=== PATIENT | male | born 1965 | race African-American/Black ===

== ENCOUNTER 2016-07-02 11:23 | Emergency (ER) | payer OTHER ==
[~2016-07-02] VITALS: Ht 172.7 cm; Wt 65.8 kg
[2016-07-02 11:32] VITALS: BP 134/92
[2016-07-02] MEDS ORDERED: MOBIC15 MG PO (11:58)
[2016-07-02] MEDS ORDERED: PENICILLIN V P500 MG PO (11:58)
== END 2016-07-02 12:23 | disposition home or self-care (01) ==
LOC: ER 11:23
DX: K08.89 Other specified disorders of teeth and supporting structures (principal); R22.0 Localized swelling, mass and lump, head; F10.99 Alcohol use, unspecified with unspecified alcohol-induced disorder; Z87.891 Personal history of nicotine dependence

== ENCOUNTER 2017-08-27 13:32 | Emergency (ER) | payer BC ==
[~2017-08-27] VITALS: Ht 172.7 cm; Wt 68.5 kg
--- NOTE | ~2017-08-27 | EKG ---
[place] [address] [facility] [place] [address] ELECTROCARDIOGRAM REPORT Name: JESSI DÍAZ Room #: DEP [place]ina#: [id number] Admission: 08/27/17 Attend Phys: Discharge: 08/27/17 Date of : 61 Report #: [id number] THIS REPORT FOR: //name// [facility] ED Test Date: 2017-08-27 Test Time: 13:54:38 Pat Name: JESSI DÍAZ Department: Room: Gender: M Mc Kay Stitcher: ALESHIAINGRID : 1965 Requested By: Aneudy Cruz Order Number: [id number] MD: Randy Pimentel Measurements Intervals [place] Rate: 101 P: 52 DC: 160 QRS: -27 QRSD: 100 T: 44 QT: 351 QTc: 455 Interpretive Statements Sinus tachycardia Borderline left axis deviation RSR' in V1 or V2, probably normal variant Compared to ECG 10/29/2016 18:34:45 No significant change was found Electronically Signed On 08-28-2017 7:37:18 CDT by Randy Pimentel [email or web address] <ELECTRONICALLY SIGNED> By: Randy Pimentel MD, [facility] 08/28/17 0737 1354 1354 Randy Pimentel MD, [facility] /EPI
[~2017-08-27 13:32] MED LIST: ASPIRIN325 PO; IBUPROFEN 800800 M1 PO; MOBIC15 MG PO; NAPROSYN500 MG PO; NOHOMEMEDICATIONS; PENICILLIN V P500 MG PO
[2017-08-27 13:48] LABS: ABSOLUTE NEUTROPHILS 8.3 thou/uL (1.4-8.2); BASOPHILS 0.3 % (0.0-2.0); EOSINOPHILS 0.5 % (0.0-3.0); HEMATOCRIT 41.8 % (42.0-52.0); LYMPHOCYTES 10.7 % (24.0-44.0); MCH 26.1 pg (26.0-34.0); MCHC 33.6 g/dL (28.0-37.0); MCV 77.7 fL (80.0-100.0); MONOCYTES 4.5 % (1.0-8.0); PLATELET COUNT 230 thou/uL (150-400); RBC 5.38 mil/uL (4.50-6.00); RDW 14.7 % (10.5-14.5); WBC 9.8 thou/uL (4.0-11.0)
[2017-08-27 13:55] LABS: CALCIUM 8.7 mg/dL (8.5-10.1); CREATININE 0.9 mg/dL (0.7-1.3); POTASSIUM 3.5 mmol/L (3.5-5.1)
[2017-08-27 14:01] LABS: ALBUMIN 3.4 g/dL (3.4-5.0); TOTAL BILIRUBIN 0.5 mg/dL (<0.1-1.0)
[2017-08-27] MEDS ORDERED: NORVASC5 MG PO (14:18)
[2017-08-27] MEDS ORDERED: ATORVASTATIN CA40 MG PO (14:18)
[2017-08-27] MEDS ORDERED: ASPIRIN81 M2 PO (14:18)
[2017-08-27 15:34] LABS: URINE BILIRUBIN NEGATIVE (Negative); URINE BLOOD NEGATIVE (Negative); URINE CLARITY CLEAR; URINE COLOR YELLOW; URINE GLUCOSE-RANDOM* NEGATIVE (Negative); URINE KETONES NEGATIVE (Negative); URINE LEUKOCYTES NEGATIVE (Negative); URINE NITRITE NEGATIVE (Negative); URINE PROTEIN (DIPSTICK) NEGATIVE (Negative); URINE SPECIFIC GRAVITY <= 1.005 (1.005-1.035)
[2017-08-27] MEDS ORDERED: CIPROFLOXACIN750 MG PO (15:53)
[2017-08-27] MEDS ORDERED: FLAGYL500 MG PO (15:53)
[2017-08-27] MEDS ORDERED: HYDROCODONE-AP1 EAC6 PO (15:53)
== END 2017-08-27 16:37 | disposition home or self-care (01) ==
LOC: ER 13:32
PROVIDERS: Nurse Practitioner Family
DX: K57.92 Diverticulitis of intestine, part unspecified, without perforation or abscess without bleeding (principal); Z87.891 Personal history of nicotine dependence

== ENCOUNTER 2018-11-16 15:44 | Inpatient (IN) | payer BC ==
[~2018-11-16] VITALS: Ht 172.7 cm; Wt 66.7 kg
--- NOTE | ~2018-11-16 | HC ---
[facility] [address] [place] [address] CONSULTATION Name: JESSI DÍAZ Room #: 359-P [facility] IN M.R.#: [id number] Admission: 11/16/18 ������������������ Attend Phys: Andrade Hernández MD Discharge: 11/17/18 ������������������ Date of : 61 Report #: [id number] THIS REPORT FOR: //name// CC: Raven Hernández DATE OF SERVICE: 11/17/2018 INDICATION: Chest pain. HISTORY OF PRESENT ILLNESS: This is a 53-year-old gentleman with a history of hypertension, hypercholesterolemia, presenting with chest pains. Yesterday around 2:00 p.m., he developed mild discomfort across the chest area. He was resting at the time when the discomfort started. There were no associated symptoms of dyspnea or diaphoresis. It did not change with standing or movement of his arms. It lingered for a while and started to dissipate, lasting probably 3 hours in duration. There is no history of fever, chills or orthopnea. The patient reports having a stress test recently with his primary care physician at [facility], unremarkable. PAST MEDICAL HISTORY: Hypertension, hypercholesterolemia. ALLERGIES: None. MEDICATIONS: Include atorvastatin 40, amlodipine 5, aspirin. SOCIAL HISTORY: Negative for tobacco use. FAMILY HISTORY: Negative for premature CAD. REVIEW OF SYSTEMS: A full 10-point review of systems performed. Only the pertinent positives and negatives are described in the HPI. PHYSICAL EXAMINATION: VITAL SIGNS: Blood pressure is 130/80, heart rate is 65 beats per minute. GENERAL APPEARANCE: This is a well-developed, well-nourished male, in no acute distress. HEENT: Normocephalic, atraumatic. Oral mucosa moist. NECK: Supple. LUNGS: Clear to auscultation. CARDIAC: Regular rate and rhythm, S1, S2 positive. ABDOMEN: Soft, nontender. EXTREMITIES: No cyanosis, no edema. LABORATORY VALUES: Hemoglobin 13.1. Serial troponin levels are negative x 3. Creatinine is 0.8. [facility] [address] [place] [address] CONSULTATION Name: JESSI DÍAZ Room #: 359-[facility] IN M.R.#: [id number] Admission: 11/16/18 ������������������ Attend Phys: Andrade Hernández MD Discharge: 11/17/18 ������������������ Date of : 61 Report #: [id number] ECG reveals sinus rhythm, early repolarization. ASSESSMENT AND PLAN: 1. Chest pain syndrome, three sets of troponin levels are negative and the ECG is unremarkable. This is unlikely to be from a cardiac abnormality as he had 3 hours of discomfort and three sets of troponin levels are negative. He remains clinically stable with no further episodes. Consider discharge home and the patient will follow up with his physician at [facility]. 2. Hypertension. The blood pressure is stable with amlodipine. 3. Hypercholesterolemia, tolerating Lipitor, denies any myalgias. ��������������������������������������������� ���������������������������������������� By: ��������������������������������������������� 1100 2224 MD sheri Sanchez
[~2018-11-16 15:44] MED LIST changes: +ASPIRIN81 M2 PO; +ATORVASTATIN CA40 MG PO; +CIPROFLOXACIN750 MG PO; +FLAGYL500 MG PO; +HYDROCODONE-AP1 EAC6 PO; +NORVASC5 MG PO
[2018-11-16 15:55] VITALS: BP 126/80
[2018-11-16 16:36] LABS: BASOPHILS 1.1 % (0.0-2.0); EOSINOPHILS 3.9 % (0.0-3.0); HEMATOCRIT 38.2 % (42.0-52.0); HEMOGLOBIN 12.7 gm/dL (14.0-18.0); LYMPHOCYTES 34.1 % (24.0-44.0); MCH 25.8 pg (26.0-34.0); MCHC 33.3 g/dL (28.0-37.0); MCV 77.4 fL (80.0-100.0); PLATELET COUNT 199 thou/uL (150-400); POLYS 52.9 % (36.0-66.0); RBC 4.93 mil/uL (4.50-6.00); RDW 14.9 % (10.5-14.5); WBC 3.7 thou/uL (4.0-11.0)
[2018-11-16 16:43] LABS: ANION GAP 5 mmol/L (7-16); BUN 12 mg/dL (7-18); CALCIUM 8.7 mg/dL (8.5-10.1); CHLORIDE 110 mmol/L (98-107); CO2 30 mmol/L (21-32); CREATININE 0.9 mg/dL (0.7-1.3); GLUCOSE 93 mg/dL (74-106); POTASSIUM 3.8 mmol/L (3.5-5.1); SODIUM 145 mmol/L (136-145)
[2018-11-16 16:54] LABS: ALBUMIN 3.3 g/dL (3.4-5.0); SGOT 18 U/L (15-37); SGPT 30 U/L (30-65); TOTAL BILIRUBIN 0.3 mg/dL (<0.1-1.0); TROPONIN-I <0.06 ng/mL (<0.06)
[2018-11-16 18:39] LABS: ALBUMIN 3.3 g/dL (3.4-5.0); TOTAL PROTEIN 7.1 g/dL (6.4-8.2)
[2018-11-16 19:05] LABS: TSH 0.746 uIU/mL (0.358-3.740)
[2018-11-16 20:18] VITALS: BP 129/82
[2018-11-16 20:40] LABS: PROTIME 10.6 Seconds (9.3-11.4)
[2018-11-16 21:00] VITALS: BP 131/90
[2018-11-16 23:29] VITALS: BP 140/95
[2018-11-17 04:52] VITALS: BP 122/88
--- NOTE | 2018-11-17 06:05 | NUR ---
Admitted from ER last night. Cardiology consult called to answering service. Heparin gtt.infusing. Kept NPO since MN per order. Up ad shereen in room with steady gait. Slept some. Denies any chest discomfort stating he's feeling better already and hoping he will go home today. Denies being short of breath at rest or with activity. Will continue to monitor.
[2018-11-17 07:30] VITALS: BP 131/82
[2018-11-17 07:59] LABS: HEMATOCRIT 39.9 % (42.0-52.0); HEMOGLOBIN 13.1 gm/dL (14.0-18.0); MCH 25.4 pg (26.0-34.0); MCHC 32.7 g/dL (28.0-37.0); MCV 77.7 fL (80.0-100.0); RBC 5.14 mil/uL (4.50-6.00); RDW 15.6 % (10.5-14.5); WBC 4.2 thou/uL (4.0-11.0)
[2018-11-17 08:09] LABS: CALCIUM 8.8 mg/dL (8.5-10.1); CREATININE 0.8 mg/dL (0.7-1.3); POTASSIUM 3.7 mmol/L (3.5-5.1)
--- NOTE | 2018-11-17 11:14 | NUR ---
Assumed care of pt at 0700. Pt has been up ad shereen in room. Denies pain, chest pain, and SOB. Pt has repeatedly asked to go home and threatened to leave. Pt did agree to wait until the refining supervisor could meet with him. Dr. Rodgers consulted with pt and gave him an "ok" to DC, noting that he has a physician(s) at that he can follow-up with. Will notify Dr. Hernández for further DC orders.
[2018-11-17 11:44] VITALS: BP 131/82
--- NOTE | 2018-11-17 11:53 | EKG ---
[address] [address] ELECTROCARDIOGRAM REPORT Name: JESSI DÍAZ Room #: 359-P ADM IN M.R.#: [id number] ������������������ Admission: 11/16/18 ������������������ Attend Phys: Andrade Hernández MD Discharge: ������������������ Date of : 61 Report #: [id number] ����������������������������������������������������������������� [id number] THIS REPORT FOR: //name// [facility] ED Test Date: 2018-11-16 Test Time: 15:53:21 Pat Name: JESSI DÍAZ Department: Room: 359 Gender: M Nut Sifter: ARMEN : 1965 Requested By: Dahlia Burr Order Number: [id number] MD: Will Rodgers Measurements Intervals [place] Rate: 77 P: 35 SD: 153 QRS: 6 QRSD: 98 T: 65 QT: 374 QTc: 424 Interpretive Statements Sinus rhythm RSR' in V1 or V2, right VCD Early repolarization Compared to ECG 08/27/2017 13:54:38 No significant change Electronically Signed On 11-17-2018 11:52:56 CDT by Will Rodgers [email or web address] ��������������������������������������������� <ELECTRONICALLY SIGNED> ���������������������������������������� By: Will Rodgers MD ��������������������������������������������� 11/17/18 1152 1553 155 Will Rodgers MD /MILY
--- NOTE | 2018-11-17 12:35 | NUR ---
PATIENT DISHCARGED HOME. CARDIOLOGY SAW HIM BUT HE STATED THAT HE HAS A DR AT WHOM HE WILL PREFER TO SEE. HE HAS INSISTED TO NURSE ALL MORNING THAT HE WILL BE GOING HOME TODAY NO MATTER WHAT. WALKED WITH PATIENT TO PARKING LOT WHERE HE DROVE HIMSELF HOME.
== END 2018-11-17 12:24 | disposition home or self-care (01) | DRG 313 ==
LOC: ER 15:44 → EROBS 17:28 → 3W 20:53
PROVIDERS: Physician Assistant; ADMIT Internal Medicine
DX: R07.89 Other chest pain (principal); I10 Essential (primary) hypertension; E78.00 Pure hypercholesterolemia, unspecified; Z87.891 Personal history of nicotine dependence; Z79.82 Long term (current) use of aspirin; Z79.899 Other long term (current) drug therapy; Z82.49 Family history of ischemic heart disease and other diseases of the circulatory system
CPT/HCPCS: 10779

== ENCOUNTER 2019-09-30 14:22 | Emergency (ER) | payer OTHER ==
[~2019-09-30] VITALS: Ht 172.7 cm; Wt 68.0 kg
[2019-09-30 15:11] LABS: ABSOLUTE NEUTROPHILS 3.3 thou/uL (1.4-8.2); BASOPHILS 1.3 % (0.0-2.0); EOSINOPHILS 2.3 % (0.0-3.0); HEMATOCRIT 43.1 % (42.0-52.0); HEMOGLOBIN 14.4 gm/dL (14.0-18.0); LYMPHOCYTES 31.1 % (24.0-44.0); MCH 26.6 pg (26.0-34.0); MCHC 33.5 g/dL (28.0-37.0); MCV 79.6 fL (80.0-100.0); PLATELET COUNT 226 thou/uL (150-400); POLYS 57.3 % (36.0-66.0); RBC 5.42 mil/uL (4.50-6.00); RDW 14.4 % (10.5-14.5); WBC 5.7 thou/uL (4.0-11.0)
[2019-09-30 15:17] LABS: ANION GAP 7 mmol/L (7-16); BUN 15 mg/dL (7-18); CHLORIDE 102 mmol/L (98-107); CO2 28 mmol/L (21-32); GLUCOSE 89 mg/dL (74-106); POTASSIUM 3.9 mmol/L (3.5-5.1); SODIUM 137 mmol/L (136-145)
[2019-09-30 15:27] LABS: TROPONIN-I <0.06 ng/mL (<0.06)
[2019-09-30 18:15] VITALS: BP 128/92
--- NOTE | 2019-10-01 08:00 | EKG ---
[facility] [place] [address] [place] [address] ELECTROCARDIOGRAM REPORT Name: JESSI DÍAZ Room #: DEP [facility]#: [id number] Admission: 09/30/19 Attend Phys: Discharge: 09/30/19 Date of : 61 Report #: [id number] THIS REPORT FOR: cc: FAM - No family physician/PCP FAM - No family physician/PCP Randy Pimentel MD [facility] THIS REPORT FOR: //name// [facility] ED Test Date: 2019-09-30 Test Time: 14:37:45 Pat Name: JESSI DÍAZ Department: Room: Gender: Egg Trayer: [facility] : 1965 Requested By: Katarina Easton Order Number: [id number] MD: Randy Pimentel Measurements Intervals [place] Rate: 74 P: 32 CT: 177 QRS: -25 QRSD: 104 T: 26 QT: 388 QTc: 431 Interpretive Statements Sinus rhythm Borderline left axis deviation Early repolarization Compared to ECG 11/16/2018 15:53:21 No significant change was found Electronically Signed On 10-01-2019 7:59:06 CDT by Randy Pimentel [email or web address] <ELECTRONICALLY SIGNED> By: Randy Pimentel MD, FAC 10/01/19 0759 1437 1437 Randy Pimentel MD, [facility] /EPI
== END 2019-09-30 18:35 | disposition home or self-care (01) ==
LOC: ER 14:22
PROVIDERS: Emergency Medicine
DX: I10 Essential (primary) hypertension (principal); E78.00 Pure hypercholesterolemia, unspecified; R07.9 Chest pain, unspecified; E66.9 Obesity, unspecified; Z79.899 Other long term (current) drug therapy; Z79.82 Long term (current) use of aspirin; Z87.891 Personal history of nicotine dependence

== ENCOUNTER 2021-04-25 19:01 | Observation (INO) | payer OTHER ==
[~2021-04-25] VITALS: Ht 172.7 cm; Wt 72.6 kg
[2021-04-25 19:08] VITALS: BP 136/76
[2021-04-25 19:40] LABS: ABSOLUTE NEUTROPHILS 2.9 thou/uL (1.4-8.2); BASOPHILS 1.6 % (0.0-2.0); EOSINOPHILS 3.6 % (0.0-3.0); HEMATOCRIT 42.6 % (42.0-52.0); HEMOGLOBIN 13.8 gm/dL (14.0-18.0); LYMPHOCYTES 29.9 % (24.0-44.0); MCH 25.5 pg (26.0-34.0); MCHC 32.4 g/dL (28.0-37.0); MCV 78.9 fL (80.0-100.0); MONOCYTES 8.7 % (1.0-8.0); PLATELET COUNT 213 thou/uL (150-400); POLYS 56.2 % (36.0-66.0); RDW 15.2 % (10.5-14.5); WBC 5.1 thou/uL (4.0-11.0)
[2021-04-25 19:45] LABS: CALCIUM 8.5 mg/dL (8.5-10.1); POTASSIUM 3.5 mmol/L (3.5-5.1)
[2021-04-25 22:25] VITALS: BP 143/95
[2021-04-25] MEDS ORDERED: NOHOMEMEDICATIONS (22:26)
[2021-04-25 22:46] VITALS: BP 142/93
[2021-04-25 23:05] VITALS: BP 125/88
[2021-04-25 23:30] LABS: CHOLESTEROL 162 mg/dL (<200); HDL CHOLESTEROL 45 mg/dL (>40); LDL CHOLESTEROL 84 mg/dL (<100); TC:HDL 3.6 Ratio (Not establshd); TRIGLYCERIDE 168 mg/dL (<150); VLDL 34 mg/dL (<40)
[2021-04-25 23:31] LABS: SERUM ASSESSMENT Slight Lipemia
[2021-04-26] VITALS (8 sets, daily range): BP systolic 114–147; BP diastolic 82–98
--- NOTE | 2021-04-26 00:40 | NUR ---
PT ARRIVED TO ROOM 201 IN CCU ON 04.25.21 AT 2254. PT ALERT, ON RA, AMBULATING TO TOILET. VS STABLE. WILL CONTINUE TO MONITOR.
[2021-04-26 02:10] LABS: CALCIUM 8.3 mg/dL (8.5-10.1); POTASSIUM 3.5 mmol/L (3.5-5.1)
--- NOTE | 2021-04-26 07:49 | EKG ---
[address] [address] ELECTROCARDIOGRAM REPORT Name: JESSI DÍAZ Room #: 201-P ADM IN M.R.#: [id number] Admission: 04/25/21 Attend Phys: Golden Duran MD Discharge: Date of : 61 Report #: [id number] [facility] ED Test Date: 2021-04-25 Test Time: 19:09:10 Pat Name: JESSI DÍAZ Department: Room: 201 Gender: M Equipment Specialist: GHAZAL : 1965 Requested By: Jared Loza Order Number: [id number] MD: Hunter Ovalles Measurements Intervals [place] Rate: 70 P: 35 AK: 173 QRS: -7 QRSD: 107 T: 39 QT: 391 QTc: 422 Interpretive Statements Sinus rhythm Minimal ST elevation, anterior leads Baseline wander in lead(s) I,III,aVL,aVF Compared to ECG 09/30/2019 14:37:45 ST (T wave) deviation now present Early repolarization no longer present Electronically Signed On 04-26-2021 7:49:17 FABRICATION WELDER by Hunter Ovalles [email or web address] <ELECTRONICALLY SIGNED> By: Hunter Ovalles MD, FACC 04/26/21 0749 190 08 Hunter Ovalles MD, FAC /EPI
--- NOTE | 2021-04-26 07:50 | EKG ---
[address] [address] ELECTROCARDIOGRAM REPORT Name: JESSI DÍAZ Room #: 201-P ADM IN M.R.#: [id number] Admission: 04/25/21 Attend Phys: Golden Duran MD Discharge: Date of : 61 Report #: [id number] [facility] Test Date: 2021-04-26 Test Time: 03:45:51 Pat Name: JESSI DÍAZ Department: Room: 201 P Gender: M Science Center Display Builder: [id number] : 1965 Requested By: Yohana Grande Order Number: [id number] : Hunter Ovalles Measurements Intervals [place] Rate: 67 P: 32 DC: 179 QRS: -12 QRSD: 105 T: 37 QT: 417 QTc: 441 Interpretive Statements Sinus rhythm Compared to ECG 04/25/2021 19:09:10 No significant change Electronically Signed On 04-26-2021 7:50:25 FISH HATCHERY SUPERINTENDENT by Hunter Ovalles [email or web address] <ELECTRONICALLY SIGNED> By: Hunter Ovalles MD, [facility] 04/26/21 0750 0345 0345 Hunter Ovalles MD, FACC /EPI
--- NOTE | 2021-04-26 08:48 | NUR ---
Assumed care of pt this AM. Pt is A&O x4, on RA. SR on the monitor. Pt states current chest pain 02/11 without radiation. Pt up ad shereen in room. NPO since midnight with plans for stress today today. Will continue to assess pt needs throughout day.
--- NOTE | 2021-04-26 11:05 | 2DMMODE ---
[facility] [place] [address] 2 D/M-MODE ECHOCARDIOGRAM Name: JESSI DÍAZ Room #: 201-P ADM IN M.R.#: [id number] Admission: 04/25/21 Attend Phys: Jair Robertson MD Discharge: Date of : 61 Report #: [id number] THIS REPORT FOR: cc: FAM - No family physician/PCP FAM - No family physician/PCP Charanjit Arceo MD ~ APPROVED REPORT Study performed: 04/26/2021 09:28:16 EXAM: Comprehensive 2D, Doppler, and color-flow Echocardiogram Patient Location: Bedside Room #: 201 Status: routine BSA: 1.86 HR: 62 bpm BP: 125/88 mmHg Rhythm: NSR Other Information Study Quality: Good Indications Chest Pain Hypertension/HDD 2D Dimensions RVDd: 35.17 mm IVSd: 10.79 (7-11mm) LVOT Diam: 22.48 (18-24mm) LVDd: 44.53 mm PWd: 11.43 (7-11mm) Ascending Ao: 29.73 (22-36mm) LVDs: 28.82 (25-40mm) Left Atrium: 30.27 (27-40mm) Aortic Root: 28.53 mm IVC: 16.00 mm Volumes Left Atrial Volume (Systole) Single Plane 4CH: 36.86 mL Single Plane 2CH: 45.65 mL LA ESV Index: 25.00 mL/m2 Aortic Valve AoV Peak Aries.: 0.94 m/s AO Peak Gr.: 3.53 mmHg LVOT Max P.74 mmHg LVOT Max V: 0.83 m/s [facility] [address] [place] [address] 2 D/M-MODE ECHOCARDIOGRAM Name: JESSI DÍAZ Room #: 201-P [facility] IN ..#: [id number] Admission: 04/25/21 Attend Phys: Jair Robertson MD Discharge: Date of : 61 Report #: [id number] [id number] Vmax: 3.50 cm2 Mitral Valve E/A Ratio: 1.2 MV Decel. Time: 164.15 ms MV E Max Aries.: 0.83 m/s MV A Aries.: 0.69 m/s MV PHT: 47.60 ms IVRT: 96.89 ms Pulmonary Valve PV Peak Aries.: 0.77 m/s PV Peak Gr.: 2.36 mmHg Pulmonary Vein P Vein S: 0.45 m/s P Vein A: 0.23 m/s P Vein D: 0.26 m/s P Vein A Dur.: 156.9 msec P Vein S/D Ratio: 1.73 Left Ventricle The left ventricle is normal size. There is normal LV segmental wall motion. There is normal left ventricular wall thickness. Left ventricular systolic function is normal. The left ventricular ejection fraction is within the normal range. LVEF is 55-60%. The left ventricular diastolic function is normal. Right Ventricle The right ventricle is normal size. The right ventricular systolic function is normal. Atria The left atrium size is normal. The right atrium size is normal. Aortic Valve The aortic valve is normal in structure. No aortic regurgitation is present. There is no aortic valvular stenosis. Mitral Valve The mitral valve is normal in structure. There is no mitral valve regurgitation noted. No evidence of mitral valve stenosis. Tricuspid Valve The tricuspid valve is normal in structure. There is no tricuspid valve regurgitation noted. Pulmonic Valve [facility] [address] [place] [address] 2 D/M-MODE ECHOCARDIOGRAM Name: JESSI DÍAZ Room #: 201-P [facility] IN M.R.#: [id number] Admission: 04/25/21 Attend Phys: Jair Robertson MD Discharge: Date of : 61 Report #: [id number] The pulmonary valve is normal in structure. There is no pulmonic valvular regurgitation. Great Vessels The aortic root is normal in size. IVC is normal in size and collapses >50% with inspiration. Pericardium There is no pericardial effusion. <Conclusion> The left ventricle is normal size. There is normal left ventricular wall thickness. LVEF is 55-60%. The right ventricle is normal size. The left atrium size is normal. The aortic valve is normal in structure. The mitral valve is normal in structure. The tricuspid valve is normal in structure. The pulmonary valve is normal in structure. The aortic root is normal in size. There is no pericardial effusion. <ELECTRONICALLY SIGNED> By: Charanjit Arceo MD 04/26/21 1105 04 04 Charanjit Arceo MD /INF
[2021-04-26] MEDS ORDERED: TOPROL XL25 MG PO (17:10)
[2021-04-26] MEDS ORDERED: ASPIRIN EC81 M1 PO (17:10)
[2021-04-27 05:07] LABS: GLYCOHEMOGLOBIN (HGB A1C) 5.7 % (4.8-5.6)
--- NOTE | 2021-04-27 10:29 | CATHLAB ---
[facility] [place] [address] [place] [address] INVASIVE PROCEDURE REPORT Name: JESSI DÍAZ Room #: 201-P AIDA Arnold#: [id number] Admission: 04/26/21 Attend Phys: Jair Robertson MD Discharge: 04/26/21 Date of : 61 Report #: [id number] THIS REPORT FOR: cc: FAM - No family physician/PCP FAM - No family physician/PCP Will Rodgers MD ~ APPROVED REPORT Study performed: 04/26/2021 15:25:41 Patient Details Patient Status: In-Patient Room #: 201 The patient is a 55 year-old male Event Personnel Will Rodgers Hotel Maid, Kelly Díaz RN RN, Jolene Donohue RTR, PROFESSIONAL NURSE Monitor, Delma Costa RTR Scrub Procedures Performed Art Access - R femoral artery* Left Heart Cath w/or w/o Coronaries [id number] [facility] [address] Initial Mod Sed Same Phys/QHP Gr 158830 Hemostasis with Manual pressure 25407 Mod Sed Same Phys/QHP Ea 566072 Indication Positive stress test, Chest pain Risk Factors Hypercholesterolemia, Hypertension Procedure Narrative The Right Groin^ was infiltrated with 1% Lidocaine subcutaneous anesthesia. A PINNACLE 4FR Sheath #[id number] sheath was inserted into the RFA^. Coronary angiography was performed using coronary diagnostic catheters. The right coronary system was accessed and visualized with a JR4 catheter. The left coronary system was accessed and visualized with a JL4 catheter. The left ventricle was accessed and visualized with a JR4 catheter. Left ventricular/Aortic Valve gradient assessed via catheter pullback. Hemostasis was obtained with manual pressure following sheath removal without any complications. The patient tolerated the procedure well and there were no complications associated with the procedure. There was no hematoma. [facility] [address] [place] [address] INVASIVE PROCEDURE REPORT Name: JESSI DÍAZ Room #: 201-P [facility] IN [facility].#: [id number] Admission: 04/26/21 Attend Phys: Jair Robertson MD Discharge: 04/26/21 Date of : 61 Report #: [id number] Intraoperative Conscious Sedation Sedation start time: 15:51 Case end Time: 16:14 Fentanyl 50 mcg Versed 1 mg Fluoro Time: 1.35 minutes Dose: DAP 1472.50 cGycm2 194 mGy Contrast Type and Amount: Omnipaque 50 ml Coronary Angiography The patient's coronary anatomy is co- dominant. Diagnostic Cath Left Main The left main artery is a large-caliber vessel, appears angiographically normal. LAD The LAD is a moderate-sized caliber vessel, traverses the anterior wall and wraps around the apex. This vessel is patent with no flow-limiting lesions. Diagonal 1 This is a small to moderate-sized caliber vessel, patent with no flow-limiting lesions. Diagonal 2 This is a small to moderate-sized caliber vessel, patent with no flow-limiting lesions. Circumflex This is a moderate-sized caliber vessel, appears angiographically normal. OM1 This is a moderate-sized caliber vessel, originating from the mid segment of the left circumflex artery. This vessel courses down the inferolateral wall, patent with no flow-limiting lesions. Right Coronary This is a moderate-sized caliber vessel, patent with no flow-limiting lesions. R PDA This is a small to moderate-sized caliber vessel, patent with no flow-limiting lesions. Left Ventriculography Left Ventriculography was not performed. Ejection Fraction was 60% based off patient's Nuclear Cardiac Stress Test. An LVEDP was measured and there is no gradient across the outflow tract. Hemodynamics The aortic pressure is 140/74 mmHg with a mean of 104 mmHg. The left ventricular pressure is 140/5 mmHg with a mean of mmHg. The left ventricular end diastolic pressure is 18 mmHg. Conclusion 1. Angiographically normal coronary arteries. 2. This is a codominant system. [facility] [address] [place] [address] INVASIVE PROCEDURE REPORT Name: JESSI DÍAZ Room #: 201-P [facility] IN M.R.#: [id number] Admission: 04/26/21 Attend Phys: Jair Robertson MD Discharge: 04/26/21 Date of : 61 Report #: [id number] 3. There is normal LV systolic function. 4. Recommend risk factor management. <ELECTRONICALLY SIGNED> By: Will Rodgers MD 04/27/21 1028 1028 1028 Will Rodgers MD /INF
== END 2021-04-26 19:00 | disposition home or self-care (01) ==
LOC: ER 19:01 → 2N 21:28 → ER 21:28 → EROBS 21:28 → 2N 22:47
PROVIDERS: Nurse Practitioner; Nurse Practitioner Family; ADMIT Hospitalist; ATTEND Hospitalist
DX: R07.89 Other chest pain (principal); Z20.822 Contact with and (suspected) exposure to COVID-19; I10 Essential (primary) hypertension; E78.00 Pure hypercholesterolemia, unspecified; R73.9 Hyperglycemia, unspecified; E78.5 Hyperlipidemia, unspecified; Z79.82 Long term (current) use of aspirin; Z79.899 Other long term (current) drug therapy
CPT/HCPCS: 10081